=== PATIENT | male | born 1965 | race Caucasian/White ===

== ENCOUNTER 2023-03-28 23:00 | Emergency (ER) | payer BC, SELFPAY ==
[2023-03-28 23:10] VITALS: BP 158/90
[2023-03-28 23:55] LABS: % Basophils 0.6 % (0-2); % Eosinophils 2.2 % (0-6); % Immature Granulocytes 0.2 % (0-0.5); % Lymphocytes 34.4 % (20.5-51.1); % Monocytes 11.6 % (1.7-9.3); Absolute Eosinophils 0.1 10^3/uL (0-0.7); Absolute Lymphocytes 1.6 10^3/uL (1.2-3.4); Absolute Monocytes 0.5 10^3/uL (0.1-0.6); Absolute Neutrophils 2.4 10^3/uL (1.4-6.5); Hematocrit 36.8 % (39.0-52.0); Hemoglobin 12.9 g/dL (13.0-18.0); Mean Corp Hgb Conc. 35.1 g/dL (33.0-37.0); Mean Corpuscular Volume 85.6 fL (80.0-94.0); Mean Platelet Volume 10.1 fL (7.4-10.4); Nucleated Red Blood Cells % 0 % (-); Platelet Count 208 10^3/uL (130-400); Red Cell Dist. Width 12.2 % (11.5-14.5); White Blood Cell Count 4.7 10^3/uL (4.8-10.8)
[2023-03-29 00:16] LABS: ALT (SGPT) 17 U/L (0-50); AST (SGOT) 28 U/L (17-59); Albumin 4.1 g/dl (3.5-5.0); Alkaline Phosphatase 72 U/L (38-126); Blood Urea Nitrogen 16 mg/dl (9-20); Calcium 9.8 mg/dl (8.4-10.2); Carbon Dioxide 29 mmol/L (22-30); Chloride 102 mmol/L (98-107); Glucose 99 mg/dl (70-99); Potassium 4.7 mmol/L (3.5-5.1); Sodium 141 mmol/L (135-145); Total Bilirubin 0.5 mg/dl (0.2-1.3); Total Protein 6.6 g/dl (6.3-8.2); eGFR > 60.00
[2023-03-29 00:20] LABS: Troponin I < 0.012 ng/ml
[2023-03-29 01:05] VITALS: BP 122/91
[2023-03-29 02:46] VITALS: BP 136/93
[2023-03-29 02:57] VITALS: BP 128/86
[2023-03-29 03:00] VITALS: BP 128/86; BP 132/101; BP 136/91; PULSE 57; PULSE 63; PULSE 67
[2023-03-29 03:01] VITALS: BP 136/91
[2023-03-29] MEDS: ANTIVERT 25 MG PO ×2 (03:10→04:32)
--- NOTE | 2023-03-29 03:28 | ED.GENMED ---
History of Present Illness
General
Chief Complaint: Fainting Sensation
Source: patient and spouse
Exam Limitations: none
Time Seen by Provider: 03/28/23 23:52
Nursing documentation reviewed up to this point in time: agreed with
Travel History
Have you had any contact with someone who has COVID-19?: No
Do you have any symptoms of coronavirus? Fever > 100 degrees, chills, cough, shortness of breath, sore throat, loss of taste or smell, muscle aches, or headache?: No
History of Present Illness
History of Present Illness:
This is a 58-year-old gentleman who has history of diet-controlled hyperlipidemia, asymptomatic bradycardia. He complains of some what abrupt onset of lightheadedness, dizziness that began around 5 PM tonight. He feels a sense of feeling off
balance and mildly dizzy. Dizziness is worse with sitting up, worse with ambulating, improves with sitting or lying still and improves when he closes his eyes. No history of similar episodes in the past. No other associated symptoms. He denies
nausea nor vomiting, denies headache, no palpitations, no chest pain, no coughing or shortness of breath. He has had no nasal congestion nor sore throat, no ear pain.
He does have history of mild anemia.
He did however successfully give blood at the [facility] 10 days ago.
Past History
Past History
ED Past Medical History: Arrthythmia (Bradycardia), Hypercholesterolemia and Other (Psoriasis)
ED Past Surgical History: Tonsilectomy and Other (Hernia repair)
Social History
Tobacco: Non-smoker
Alcohol: Occasional
Drug: None
Personal:
Living: with family
Employment: Employed
Family History
Family History: Other (Noncontributory)
Phy Exam
Physical Exam
Physical Exam:
GENERAL: 58-year-old gentleman appears his stated age, bright and alert, pleasant, appears in no acute distress. is accompanying.
EYE: pupils equal and reactive. Extraocular muscles intact. Test of skew is negative. TUNDE (-) anicteric
NECK: Supple, nontender, no meningismus, no significant adenopathy.
ENT: posterior pharynx is clear, oral mucosa is moist. Cerumen occlusion bilaterally. Nares patent.
CARDIAC: Regular rate and rhythm. no murmur.
LUNGS: Clear breath sounds bilaterally, no acute respiratory distress, no wheezes/rales/rhonchi
ABDOMEN: Soft, nondistended, without focal tenderness, no r/g, no cvat. normoactive BS.
NEUROLOGICAL: Alert and oriented x3, no focal neuro deficits. Motor strength is 5/5 bilaterally. Gross sensation is intact. Reproducible vertiginous symptoms when repositioned from supine to sitting up. Pat-Hallpike bilaterally is negative.
SKIN: Warm and dry, normal color, skin intact. No rash.
MUSCULOSKELETAL: No C/C/E. peripheral pulses are full and equal b/l. No palpable tenderness.
PSYCH: Normal and appropriate interaction.
Course
Orders/Labs/Results
Orders:
Orders
03/28/23 23:15
Electrocardiogram (*1) Urgent
Reason for Study: Fatigue / Weakness
03/28/23 23:16
EKG- Treatment ONCE
03/28/23 23:46
Complete Blood Count/With Diff Urgent
Comprehensive Metabolic Panel Urgent
Troponin I Urgent
03/29/23 01:32
CT Head W/o Iv Contrast Urgent
Comment:
Reason For Exam: dizziness
03/29/23 03:00
Orthostatic VS- Treatment ONCE
Meclizine [Antivert] 25 mg PO NOW STA
03/29/23 04:30
Meclizine [Antivert] 25 mg .ROUTE .STK-MED ONE
03/29/23 04:31
Meclizine [Antivert] 25 mg PO NOW STA
Abnormal Lab Results
03/28/23
23:46
WBC 4.7 L 10^3/uL
(4.8-10.8)
RBC 4.30 L 10^6/uL
(4.70-6.10)
Hgb 12.9 L g/dL
(13.0-18.0)
Hct 36.8 L %
(39.0-52.0)
Monocytes % 11.6 H %
(1.7-9.3)
03/28/23 23:46
03/28/23 23:46
Vital Signs
Initial and Last Documented VS:
Initial Vital Signs
Temp Pulse Resp BP Pulse Ox
98.1 F 63 16 158/90 100
03/28/23 23:10 03/28/23 23:10 03/28/23 23:10 03/28/23 23:10 03/28/23 23:10
Last Documented Vital Signs
Temp Pulse Resp BP Pulse Ox
98.1 F 59 13 131/97 97
03/28/23 23:10 03/29/23 05:00 03/29/23 05:00 03/29/23 04:10 03/29/23 05:00
MDM/Problems Addressed
Differential Diagnosis Includes:
Concern for acute peripheral/positional vertigo, other consideration is central vertigo although reassuring that symptoms are overall mild.
Other consideration is orthostatic hypotension.
Thus far labs reveal mild anemia with hemoglobin of 12.9 which is improved from 12.22 April 2021.
Chemistries are unremarkable. Troponin is negative.
CT of the head is unremarkable.
Will check orthostatic vital signs and trial a dose of meclizine.
Will encourage oral fluids.
*Radiology
Radiology exam reviewed: radiology read reviewed
*Pulse Oximetry
Patient hypoxic: no
*EKG
Interpreted by ED Provider?: Yes
Interpretation: normal
Comparison EKG: no comparison EKG present
Rate: bradycardiac
Rhythm: sinus
[place]: normal axis
Interval: normal interval
QRS Pattern: normal QRS
Ischemia: no ischemia
*Target Trimmer Interpretation
Rate: bradycardiac
Interpretation: normal
Rhythm: sinus
*Critical Care Note
Total Time (30-74mins, 75-104mins- exclusive of procedures): Not Applicable
Update Note
Update Note:
03/29/2023 0512 AM
Patient feeling markedly improved after meclizine. Near complete resolution of vertiginous symptoms.
Will discharge to home with prescription for as needed meclizine.
Discussed importance of remaining well-hydrated on a daily basis.
Prompt follow-up with PCP for recheck.
ED Attending Note
-
Portions of this chart may have been created with voice recognition software.� Occasional wrong word or��sound alike� substitutions may have occurred due to the inherent limitations of voice recognition software.
Discharge Plan
Departure
Patient Disposition: Home (Routine Discharge)
Date of Disposition: 03/29/23
Time of Disposition: 05:13
Patient with high blood pressure during this ER visit?: No
Condition: Good
Discharge Problem:
Benign paroxysmal positional vertigo
Instructions: Vertigo (a Type of Dizziness) (DC)
Prescriptions:
New
meclizine 25 mg tablet
25 mg PO QID PRN (Reason: dizziness, nausea) Qty: 20 0RF
No Action
cyanocobalamin (vitamin B-12) 1,000 MCG tablet
500 mcg PO DAILY
Iron
50 mg PO DAILY
hydrocodone-acetaminophen 1 TABLET tablet
1 - 2 tab PO Q4HPRN PRN (Reason: moderate to severe pain) Qty: 15 0RF
Referrals:
Brandon Logan MD [Family Provider] - Call in 1-3 days for appt
Interventions
Interventions:
*Risk Screen - Suicide Last Done: 03/29/23 01:13
*General Assessment Last Done: 03/29/23 01:08
ED- Fall Risk Assessment Last Done: 03/29/23 01:13
*ED COVID-19 Vaccine History Last Done: 03/29/23 01:08
ED- Cardiac Assessment Last Done: 03/29/23 01:08
ED- Neurological Assessment Last Done: 03/29/23 01:08
[2023-03-29 04:10] VITALS: BP 131/97
== END 2023-03-29 05:23 | disposition home or self-care (01) ==
LOC: EMR 23:00
PROVIDERS: EMERGENCY PHYSICIAN Emergency Medicine; FAMILY PHYSICIAN Family Medicine
DX: H81.10 Benign paroxysmal vertigo, unspecified ear (principal); E78.00 Pure hypercholesterolemia, unspecified
CPT/HCPCS: 99285; 70450; 80053; 84484; 85025; 93005

== ENCOUNTER → 2023-04-06 07:15 | Day surgery (SDC) | payer BC, SELFPAY | LOC: GI 07:15 | PROVIDERS: ATTENDING PHYSICIAN Internal Medicine Gastroenterology; FAMILY PHYSICIAN Family Medicine | DX: Z12.11 Encounter for screening for malignant neoplasm of colon (principal); K64.8 Other hemorrhoids; Q43.8 Other specified congenital malformations of intestine; Z86.010 Personal history of colon polyps | CPT/HCPCS: G0105 ==

== ENCOUNTER → 2024-03-31 12:13 | Outpatient (REF) | payer BC, SELFPAY | LOC: RAD 12:13 | PROVIDERS: ATTENDING PHYSICIAN Physician Assistant | DX: M25.511 Pain in right shoulder (principal); M54.12 Radiculopathy, cervical region | CPT/HCPCS: 72040; 73030 ==